=== PATIENT | male | born 1950 | race Hispanic/Latino ===

== ENCOUNTER 2020-01-24 21:58 | Emergency (ER) | payer OTHER ==
[~2020-01-24 21:58] MED LIST: Iopamidol-370 76% 500 ML 1 ML ONE
[2020-01-24 22:37] LABS: #Basophils 0.1 thou/uL (0.0-0.2); #Eosinphils 0.1 thou/uL (0.0-0.7); #Lymphocytes 4.6 thou/uL (1.20-3.40); #Monocytes 1.2 thou/uL (0.11-0.59); #Neutrophils 5.3 thou/uL (1.40-6.50); %Basophils 0.6 % (0.0-1.0); %Lymphocytes 40.9 % (21.0-51.0); %Neutrophils 46.4 % (42.0-75.0); Hemoglobin 17.6 g/dL (14.0-18.0); Mean Corpuscular HGB CONC 35.3 g/dL (32.0-36.0); Mean Corpuscular Hemoglobin 32.6 pg (27.0-31.0); Mean Corpuscular Volume 92.3 fL (78.0-98.0); Mean Platelet Volume 8.4 fL (7.4-10.4); Platelet Count 160 thou/uL (130-400); RBC Distribution Width 12.1 % (11.5-14.5); White Blood Cell (WBC) Count 11.3 thou/uL (4.8-10.8)
--- NOTE | 2020-01-24 22:40 | RAD ---
RIGHT HAND 3 VIEWS: Date: 01/24/2020 PROVIDED CLINICAL HISTORY: Pain status post injury. FINDINGS: Small linear radiodensity is present within the soft tissues of the palmar aspect of the ring digit D IP joint. Vascular calcifications are seen. There is no evidence for fracture or other acute osseous abnormality. If there is persistent clinical concern, conservative management and follow-up imaging a re advised. IMPRESSION: As above. POS: MARK ANTHONY
[2020-01-24 22:42] LABS: INR-International Normal Ratio 1.1; PTT 29.5 sec (22.9-36.1)
--- NOTE | 2020-01-24 22:47 | RAD ---
LEFT FOREARM RADIOGRAPHS 2 VIEWS: Date: 01/24/2020 PROVIDED CLINICAL HISTORY: Pain status post injury. FINDINGS/IMPRESSION: Healed fracture deformity of the distal radius, with chronic deformity that may need assessment for a cute disease. Vascular calcifications are seen. There is no definite evidence for an acute fracture o r other acute osseous abnormality. If there is persistent clinical concern, conservative management a nd follow-up imaging are advised. POS: MARK ANTHONY
--- NOTE | 2020-01-24 22:49 | CT ---
CT BRAIN: Date: 01/24/2020 PROVIDED CLINICAL HISTORY: Trauma. FINDINGS: The ventricular system appears normal in size and morphology. There is no evidence for intracranial h emorrhage or mass effect. The extracranial soft tissues and osseous structures demonstrate an unremar kable CT appearance. IMPRESSION: No evidence for intracranial hemorrhage or mass effect. POS: MARK ANTHONY
--- NOTE | 2020-01-24 22:51 | CT ---
CT CERVICAL SPINE: Date: 01/24/2020 PROVIDED CLINICAL HISTORY: Trauma. FINDINGS: There is no evidence for fracture or traumatic subluxation. Cervical degenerative changes are seen. V ascular calcifications are noted. Medialized course of both internal carotid arteries. The visualized lung apices appear clear. IMPRESSION: No evidence for fracture or traumatic subluxation. POS: MARK ANTHONY
[2020-01-24 22:53] LABS: ALT (SGPT) 49 U/L (8-55); AST (SGOT) 49 U/L (5-34); Alkaline Phosphatase 95 U/L (40-110); Anion Gap 16 mmol/L (10-20); BUN (Urea Nitrogen) 9 mg/dL (8.4-25.7); Bilirubin, Total 1.3 mg/dL (0.2-1.2); Calc. Creatinine Clearance 0 mL/min (70-130); Calcium 8.8 mg/dL (7.8-10.44); Carbon Dioxide 20 mmol/L (23-31); Chloride 101 mmol/L (98-107); Estimated GFR-MDRD 71; Globulin 3.6 g/dL (2.4-3.5); Glucose 206 mg/dL (80-115); Potassium 3.1 mmol/L (3.5-5.1); Protein, Total 7.6 g/dL (5.8-8.1); Sodium 134 mmol/L (136-145)
[2020-01-24 23:01] LABS: Acetaminophen Less than 6.0 mcg/mL (10.0-30.0); Alcohol 139 mg/dL (Less than 10); Salicylate Less than 8.0 mg/dL (15.0-30.0)
--- NOTE | 2020-01-24 23:09 | CT ---
CT OF THE CHEST AND ABDOMEN AND PELVIS WITH IV CONTRAST: Date: 01/24/2020 PROVIDED CLINICAL HISTORY: Trauma. FINDINGS: The heart, pericardium, and great vessels demonstrate no evidence for traumatic abnormality. 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 Vascular calcification including coronary calcium. There is no pleural fluid or pneumothorax appare nt. The lungs are free of significant opacity. The airway appears patent and of normal caliber. The solid abdominal organs demonstrate no evidence for traumatic abnormality. Bilateral renal hypoden sities are demonstrated, the larger of which are compatible with cysts and the smaller of which are t oo small to definitively characterize but likely also reflect cysts. There is no bowel dilatation, inflammatory fat stranding, free fluid, or free air apparent. The osseous structures demonstrate no concerning lytic or blastic lesions. There is no evidence for f racture. Thoracic and lumbar spinal alignment is maintained. There is no evidence for an acute compre ssion fracture. Chronic appearing loss of vertebral body height at T7. IMPRESSION: No evidence for traumatic abnormality involving the chest, abdomen, or pelvis. Chronic findings as ab ove. POS: MARK ANTHONY
[2020-01-24] MEDS ORDERED: Ketorolac Tromethamine 30 MG/ML VIAL ONE (23:23)
[2020-01-24] MEDS ORDERED: Morphine 4 MG/ML VIAL ONE (23:23)
[2020-01-24] MEDS ORDERED: Acetaminophen 500 MG TAB ONE (23:23)
== END 2020-01-25 00:20 | disposition home or self-care (01) ==
LOC: ERS 21:58
DX: S61.411A Laceration without foreign body of right hand, initial encounter (principal); S51.012A Laceration without foreign body of left elbow, initial encounter; E11.9 Type 2 diabetes mellitus without complications; I10 Essential (primary) hypertension; V29.9XXA Motorcycle rider (driver) (passenger) injured in unspecified traffic accident, initial encounter
CPT/HCPCS: 70450; 71260; 72125; 74177; 80053; 80307; 84484; 85025; 85610; 85730; 93005; 96365; 96375; J0690; J1885; J2270; Q9967

== ENCOUNTER 2023-03-27 12:59 | Inpatient (IN) | payer OTHER, MEDICAID ==
[2023-03-27 14:34] VITALS: BMI 42.1
[2023-03-27] MEDS ORDERED: Heparin 5,000 UNITS/ML VIAL ONE (14:36)
[2023-03-27] MEDS ORDERED: EPINEPHrine 1 MG/ML AMP ONE (14:36)
[2023-03-27] MEDS ORDERED: Protamine Sulfate 50 MG/5 ML VIAL ONE (14:36)
[2023-03-27] MEDS ORDERED: Bupivacaine PF 0.5% 30 ML VIAL ONE (14:36)
[2023-03-27] MEDS ORDERED: Phenylephrine 10 MG/ML VIAL ONE (14:43)
[2023-03-27] MEDS ORDERED: hydrALAZINE 20 MG/ML VIAL ONE (14:43)
[2023-03-27] MEDS ORDERED: ePHEDrine Sulfate 50 MG/10 ML VIAL ONE ×2 (14:43→15:31)
[2023-03-27] MEDS ORDERED: Nitroglycerin 50 MG/250 ML BOT 250 ML ONE (14:44)
[2023-03-27] MEDS ORDERED: fentaNYL 50 mcg/mL 1 mL Vial ONE (14:44)
[2023-03-27] MEDS ORDERED: Dexmedetomidine 200 MCG/2 ML VIAL ONE (14:44)
[2023-03-27] MEDS ORDERED: SUGAMMADEX SODIUM 200 MG/2 ML VIAL ONE (15:11)
[2023-03-27] MEDS ORDERED: Rocuronium Bromide 10 MG/ML (10ML VIAL) ONE (15:31)
[2023-03-27] MEDS ORDERED: Succinylcholine 200 MG/10 ml SYRINGE FS ONE (15:31)
[2023-03-27] MEDS ORDERED: Ondansetron PF 4 MG/2 ML Vial ONE (15:31)
[2023-03-27] MEDS ORDERED: Lidocaine 1% PF 5 ML VIAL ONE (15:31)
[2023-03-27] MEDS ORDERED: Glycopyrrolate 0.2 MG/ML 5 ML SYRINGE ONE (15:31)
[2023-03-27] MEDS ORDERED: PHENYLEPHRINE-NS 100 MCG/ML 10 ML SYRINGE ONE (15:31)
[2023-03-27] MEDS ORDERED: HYDROcodone/Acetaminophen 5/325 mg Tablet PO PRN ×2 (18:00)
[2023-03-27] MEDS ORDERED: Ipratropium/Albuterol 3 ML NEB NEB PRN (18:00)
[2023-03-27] MEDS ORDERED: Nitroglycerin 50 MG/250 ML BOT 250 ML IVPB PRN (18:00)
[2023-03-27] MEDS ORDERED: Sodium Chloride 0.9% 1,000 ML IV SCH (18:00)
[2023-03-27] MEDS ORDERED: Insulin Regular 300 UNITS/3 ML VIAL SC PRN (18:00)
[2023-03-27] MEDS ORDERED: Acetaminophen 325 MG TAB PO PRN (18:00)
[2023-03-27] MEDS ORDERED: Morphine 4 MG/ML VIAL ONE (18:13)
[2023-03-27] MEDS ORDERED: Phenylephrine 40 MG/NS 250 ML 40 MG in Premix Bag 1 BAG IVPB PRN (18:18)
[2023-03-27] MEDS: Morphine 4 MG/ML VIAL SLOW IVP PRN (18:23)
[2023-03-27] MEDS: Ondansetron PF 4 MG/2 ML Vial IVP PRN (18:42)
[2023-03-27 18:50] LABS: Glucose 127 mg/dL (83-110)
[2023-03-27] MEDS ORDERED: Atorvastatin Calcium 40 MG TAB PO SCH (21:00)
[2023-03-27] MEDS: metFORMIN 500 MG TAB PO SCH (21:45)
[2023-03-27] MEDS: Famotidine 20 MG TAB PO SCH (21:45)
[2023-03-27] MEDS: Metoprolol Tartrate 50 MG TAB PO SCH (23:25)
[2023-03-28] MEDS: Morphine 4 MG/ML VIAL SLOW IVP PRN (00:07)
[2023-03-28] MEDS: Ondansetron PF 4 MG/2 ML Vial IVP PRN ×2 (00:07→07:49)
[2023-03-28] MEDS: CEFAZOLIN 2 GM in Sodium Chloride 0.9% 100 ML IVPB SCH ×2 (00:13→07:49)
[2023-03-28 06:51] LABS: Glucose 143 mg/dL (83-110)
[2023-03-28] MEDS: Famotidine 20 MG TAB PO SCH (07:49)
[2023-03-28] MEDS: metFORMIN 500 MG TAB PO SCH (07:49)
[2023-03-28] MEDS: Metoprolol Tartrate 50 MG TAB PO SCH (07:50)
[2023-03-28] MEDS: Clopidogrel Bisulfate 75 MG TAB PO SCH ×2 (07:50→08:31)
[2023-03-28 07:55] VITALS: TEMP 98
[2023-03-28] MEDS ORDERED: Losartan 25 MG TAB PO SCH (09:00)
[2023-03-28] MEDS ORDERED: Amlodipine 5 MG TAB PO SCH (09:00)
[2023-03-28] MEDS ORDERED: Aspirin Chewable 81 MG TAB PO SCH (09:00)
[2023-03-28] MEDS ORDERED: Tamsulosin HCl 0.4 MG CAP PO SCH (09:00)
[2023-03-28] MEDS ORDERED: Empagliflozin 25 MG TAB PO SCH (09:00)
== END 2023-03-28 10:11 | disposition home or self-care (01) | DRG 38 ==
LOC: CCU 13:57
PROVIDERS: ADMIT Thoracic Surgery (Cardiothoracic Vascular Surgery); ATTEND Thoracic Surgery (Cardiothoracic Vascular Surgery)
PROC: 03CJ0ZZ Extirpation of Matter from Left Common Carotid Artery, Open Approach (ICD-10-PCS; principal; 2023-03-28)
PROC: 03CN0ZZ Extirpation of Matter from Left External Carotid Artery, Open Approach (ICD-10-PCS; 2023-03-28)
PROC: 03CL0ZZ Extirpation of Matter from Left Internal Carotid Artery, Open Approach (ICD-10-PCS; 2023-03-28)
PROC: 03UL0KZ Supplement Left Internal Carotid Artery with Nonautologous Tissue Substitute, Open Approach (ICD-10-PCS; 2023-03-28)
DX: I65.22 Occlusion and stenosis of left carotid artery (principal); Z68.41 Body mass index [BMI] 40.0-44.9, adult; I25.10 Atherosclerotic heart disease of native coronary artery without angina pectoris; E66.01 Morbid (severe) obesity due to excess calories; E78.5 Hyperlipidemia, unspecified; I10 Essential (primary) hypertension; Z86.73 Personal history of transient ischemic attack (TIA), and cerebral infarction without residual deficits; Z87.891 Personal history of nicotine dependence
CPT/HCPCS: 36415; 82947; C1768; J0171; J0360; J1644; J2270; J2370; J2405; J2720; J3010; J3490; J7050; S0020

== ENCOUNTER 2023-04-03 08:30 | Inpatient (IN) | payer OTHER, MEDICAID ==
[2023-04-05] MEDS ORDERED: Albumin 5% 500 ML ONE (06:17)
[2023-04-05] MEDS ORDERED: Heparin 10,000 UNITS/1 ML VIAL 30,000 UNITS in Sodium Chloride 0.9% 1,000 ML FS SCH (06:45)
[2023-04-05] MEDS ORDERED: Midazolam HCl 2 mg/2 ml Vial ONE ×2 (06:50)
[2023-04-05] MEDS ORDERED: EPINEPHrine 1 MG/ML AMP ONE (06:50)
[2023-04-05] MEDS ORDERED: Vasopressin 20 UNITS/ML VIAL ONE (06:50)
[2023-04-05] MEDS ORDERED: niCARdipine 25 MG/10 ML SDV ONE (06:50)
[2023-04-05] MEDS ORDERED: Fentanyl 250 MCG/5 ML VIAL ONE (06:50)
[2023-04-05] MEDS ORDERED: Norepinephrine 4 MG/4 ML VIAL ONE (06:50)
[2023-04-05] MEDS ORDERED: Rocuronium Bromide 50 MG/5 ML VIAL ONE (06:51)
[2023-04-05] MEDS ORDERED: Insulin Regular 300 UNITS/3 ML VIAL ONE (06:51)
[2023-04-05] MEDS ORDERED: Protamine Sulfate 250 MG/25 ML VIAL ONE (07:50)
[2023-04-05] MEDS ORDERED: Heparin 5,000 UNITS/ML VIAL ONE (07:50)
[2023-04-05] MEDS ORDERED: PHENYLEPHRINE-NS 100 MCG/ML 10 ML SYRINGE ONE ×2 (07:50→08:29)
[2023-04-05] MEDS ORDERED: Potassium Chloride 60 MEQ/30 ML VIAL ONE (07:50)
[2023-04-05] MEDS ORDERED: Vancomycin 1 GM VIAL ONE (07:50)
[2023-04-05] MEDS ORDERED: Mannitol 12.5 GM/50 ML ONE (07:50)
[2023-04-05] MEDS ORDERED: Aminocaproic Acid 5 GM/20 ML VIAL ONE (07:50)
[2023-04-05] MEDS ORDERED: Lidocaine 1% PF 5 ML VIAL ONE (07:50)
[2023-04-05] MEDS ORDERED: Cardioplegic Soln 1,000 ML BAG ONE (07:50)
[2023-04-05] MEDS ORDERED: Thrombin 5000 UNITS/5 ML VIAL ONE (07:50)
[2023-04-05] MEDS ORDERED: Magnesium 5 GM/10 ML VIAL ONE (07:50)
[2023-04-05] MEDS ORDERED: Heparin 30,000 units/30 ml VIAL ONE (07:50)
[2023-04-05] MEDS ORDERED: Rocuronium Bromide 10 MG/ML (10ML VIAL) ONE (07:50)
[2023-04-05] MEDS ORDERED: Sodium Bicarb 50 MEQ/50 ML Abboject 8.4% SYRINGE ONE (07:50)
[2023-04-05] MEDS ORDERED: Papaverine 60 MG/2 ML VIAL ONE (07:50)
[2023-04-05] MEDS ORDERED: Lidocaine 2% PF 100 mg/5 ml Syringe ONE (07:50)
[2023-04-05] MEDS ORDERED: PROPOFOL 200 MG/20 ML VIAL ONE (07:50)
[2023-04-05] MEDS ORDERED: Calcium Chloride 1 GM/10 ML Abboject SYRINGE ONE (07:50)
[2023-04-05] MEDS ORDERED: Isoflurane INH ANEST 100 ML BOTTLE ONE (08:29)
[2023-04-05 11:53] LABS: Actual Bicarbonate (HCO3a) 21.4 mEq/L (22-28); Base Excess (BEa) -3.4 mEq/L (-2.0 to +3.0); CO2 Tension 37.9 mmHg (35.0-45.0); Calcium, Ionized (arterial) 1.06 mmol/L (1.12-1.30); Carboxyhemoglobin (COHb) 0.8 gm% (0.0-3.0); Hematocrit-ABG 42 % (42.0-52.0); Hemoglobin (Hb) 14.2 g/dL (14.0-18.0); O2 Tension (PaO2), arterial 79.3 mmHg (> 70.0); Potassium - ABG Lab 4.59 mmol/L (3.70-5.30)
[2023-04-05 11:55] LABS: ALV-art Gradient 298.125 mmHg (0-20); Puncture Site Arterial Line
[2023-04-05] MEDS ORDERED: Ondansetron PF 4 MG/2 ML Vial IVP PRN (11:56)
[2023-04-05] MEDS ORDERED: NOREPINEPHRINE 8 MG/250 ML-D5W 250 ML IVPB PRN (11:56)
[2023-04-05] MEDS ORDERED: Post-Op Insulin Drip Protocol IVPB ONE (11:56)
[2023-04-05] MEDS ORDERED: Hetastarch 6% 500 ML 500 ML IVPB PRN (11:56)
[2023-04-05] MEDS ORDERED: Mag-Al 1200 mg/1200 mg/30 ML UDCUP PO PRN (11:56)
[2023-04-05] MEDS ORDERED: Bisacodyl 5 MG TAB PO PRN (11:56)
[2023-04-05] MEDS ORDERED: Nitroglycerin 50 MG/250 ML BOT 250 ML IVPB PRN (11:56)
[2023-04-05] MEDS ORDERED: HYDROcodone/Acetaminophen 5/325 mg Tablet PO PRN (11:56)
[2023-04-05] MEDS ORDERED: DOPamine 400 MG/D5W 250 ML 250 ML IVPB PRN (11:56)
[2023-04-05] MEDS ORDERED: Guaifenesin DM 100-10/5 ML UDCUP PO PRN (11:56)
[2023-04-05] MEDS ORDERED: niCARdipine 25 MG in Sodium Chloride 0.9% 250 ML 250 ML IVPB PRN (11:56)
[2023-04-05] MEDS ORDERED: hydrALAZINE 20 MG/ML VIAL SLOW IVP PRN (11:56)
[2023-04-05] MEDS ORDERED: Morphine 2 MG/ML VIAL SLOW IVP PRN (11:56)
[2023-04-05] MEDS ORDERED: fentaNYL 50 mcg/mL 1 mL Vial SLOW IVP PRN (11:56)
[2023-04-05] MEDS ORDERED: Potassium Chloride 20 MEQ/100 ML PREMIX BAG IVPB PRN (11:56)
[2023-04-05] MEDS ORDERED: Ipratropium/Albuterol 3 ML NEB NEB PRN (11:56)
[2023-04-05] MEDS ORDERED: Bisacodyl 10 MG SUPP PR PRN (11:56)
[2023-04-05] MEDS ORDERED: Promethazine HCl 25 MG/ML VIAL IM PRN (11:56)
[2023-04-05] MEDS ORDERED: Ketorolac Tromethamine 30 MG/ML VIAL IVP SCH (12:00)
[2023-04-05 12:03] LABS: #Eosinphils 0.1 thou/uL (0.0-0.7); #Monocytes 0.8 thou/uL (0.11-0.59); #Neutrophils 10.4 thou/uL (1.40-6.50); %Basophils 0.2 % (0.0-1.0); %Eosinophils 0.8 % (0.0-10.0); %Lymphocytes 9.5 % (21.0-51.0); %Monocytes 6.4 % (0.0-10.0); %Neutrophils 82.1 % (42.0-75.0); Hemoglobin 13.5 g/dL (14.0-18.0); Mean Corpuscular HGB CONC 34.6 g/dL (32.0-36.0); Mean Corpuscular Hemoglobin 33.1 pg (27.0-31.0); Mean Corpuscular Volume 95.6 fl (78.0-98.0); Mean Platelet Volume 10.3 fL (7.4-10.4); Platelet Count 160 10x3/uL (130-400); RBC Distribution Width 12.9 % (11.5-14.5); Red Blood Cell (RBC) Count 4.08 mill/uL (4.70-6.10); White Blood Cell (WBC) Count 12.7 10x3/uL (4.8-10.8)
[2023-04-05] MEDS: Lactated Ringer's 1,000 ML IV SCH (12:12)
[2023-04-05 12:17] LABS: INR-International Normal Ratio 1.6; Prothrombin Time 19.2 sec (12.0-14.7)
[2023-04-05] MEDS: Amiodarone 450 MG in Dextrose 5% in Water 250 ML IVPB SCH ×2 (12:36→20:14)
[2023-04-05 12:37] LABS: BUN (Urea Nitrogen) 21 mg/dL (8.4-25.7); Calc. Creatinine Clearance 65 mL/min (70-130); Calcium 7.4 mg/dL (7.8-10.44); Carbon Dioxide 19 mmol/L (23-31); Chloride 111 mmol/L (98-107); Estimated GFR 43; Glucose 153 mg/dL (83-110); Potassium 4.6 mmol/L (3.5-5.1); Sodium 139 mmol/L (136-145)
[2023-04-05] MEDS ORDERED: HUMULIN R 100 UNITS in Sodium Chloride 0.9% 100 ML IVPB SCH (13:00)
[2023-04-05] MEDS ORDERED: Dextrose 5% in Water 1,000 ML IV PRN (13:00)
[2023-04-05] MEDS ORDERED: Glucagon 1 MG/ML KIT SC PRN (13:00)
[2023-04-05] MEDS ORDERED: Insulin Regular 300 UNITS/3 ML VIAL SC PRN (13:00)
[2023-04-05] MEDS ORDERED: Dextrose 50% Abboject 50 ML SYRINGE SLOW IVP PRN (13:00)
[2023-04-05 13:18] LABS: Anion Gap 14 mmol/L (10-20)
[2023-04-05 16:15] LABS: Actual Bicarbonate (HCO3a) 21.9 mEq/L (22-28); Base Excess (BEa) -2.7 mEq/L (-2.0 to +3.0); CO2 Tension 37.6 mmHg (35.0-45.0); Calcium, Ionized (arterial) 1.09 mmol/L (1.12-1.30); Carboxyhemoglobin (COHb) 0.8 gm% (0.0-3.0); Hematocrit-ABG 45 % (42.0-52.0); Hemoglobin (Hb) 15.3 g/dL (14.0-18.0); O2 Tension (PaO2), arterial 89.8 mmHg (> 70.0); Potassium - ABG Lab 4.59 mmol/L (3.70-5.30); pH, Arterial 7.383 (7.35-7.45)
[2023-04-05 16:17] LABS: Puncture Site Arterial Line
[2023-04-05] MEDS: CEFAZOLIN 2 GM in Sodium Chloride 0.9% 100 ML IVPB SCH ×2 (16:19→22:10)
[2023-04-05 17:32] LABS: Hematocrit 41.6 % (42.0-52.0); Hemoglobin 14.3 g/dL (14.0-18.0)
[2023-04-05 17:49] LABS: Potassium 4.6 mmol/L (3.5-5.1)
[2023-04-05] MEDS: HYDROcodone/Acetaminophen 5/325 mg Tablet PO PRN (17:56)
[2023-04-05] MEDS: Famotidine/PF 20 mg/2ml Vial SLOW IVP SCH (20:12)
[2023-04-05] MEDS ORDERED: Atorvastatin Calcium 20 MG TAB PO SCH (21:00)
[2023-04-05] MEDS: fentaNYL 50 mcg/mL 1 mL Vial SLOW IVP PRN (21:41)
[2023-04-06] MEDS: fentaNYL 50 mcg/mL 1 mL Vial SLOW IVP PRN (00:31)
[2023-04-06] MEDS: HYDROcodone/Acetaminophen 5/325 mg Tablet PO PRN ×2 (03:03→08:54)
[2023-04-06 04:22] LABS: #Monocytes 1.2 thou/uL (0.11-0.59); #Neutrophils 10.6 thou/uL (1.40-6.50); %Basophils 0.3 % (0.0-1.0); %Eosinophils 0.2 % (0.0-10.0); %Monocytes 9.3 % (0.0-10.0); %Neutrophils 82.8 % (42.0-75.0); Hematocrit 41.7 % (42.0-52.0); Hemoglobin 14.4 g/dL (14.0-18.0); Mean Corpuscular HGB CONC 34.5 g/dL (32.0-36.0); Mean Corpuscular Volume 95.4 fl (78.0-98.0); Mean Platelet Volume 11.5 fL (7.4-10.4); Platelet Count 204 10x3/uL (130-400); RBC Distribution Width 12.9 % (11.5-14.5); Red Blood Cell (RBC) Count 4.37 mill/uL (4.70-6.10); White Blood Cell (WBC) Count 12.8 10x3/uL (4.8-10.8)
[2023-04-06 04:50] LABS: Anion Gap 12 mmol/L (10-20); BUN (Urea Nitrogen) 18 mg/dL (8.4-25.7); Calc. Creatinine Clearance 87 mL/min (70-130); Calcium 8.2 mg/dL (7.8-10.44); Carbon Dioxide 20 mmol/L (23-31); Chloride 109 mmol/L (98-107); Estimated GFR 61; Glucose 125 mg/dL (83-110); Potassium 4.2 mmol/L (3.5-5.1); Sodium 137 mmol/L (136-145)
[2023-04-06] MEDS: CEFAZOLIN 2 GM in Sodium Chloride 0.9% 100 ML IVPB SCH (06:25)
[2023-04-06] MEDS: Lactated Ringer's 1,000 ML IV SCH (07:00)
[2023-04-06] MEDS: Aspirin 325 MG TAB PO SCH (08:26)
[2023-04-06] MEDS: Famotidine/PF 20 mg/2ml Vial SLOW IVP SCH (08:26)
[2023-04-06] MEDS: Amiodarone 200 MG TAB PO SCH ×2 (08:27→20:27)
[2023-04-06] MEDS: Magnesium 2 GM/50 ML(in water) 2 GM in Premix Bag 1 BAG IVPB SCH (08:28)
[2023-04-06 10:43] VITALS: BMI 42.1
[2023-04-06] MEDS ORDERED: Insulin Glargine 30 UNITS/0.3 ML VIAL SC PRN (12:49)
[2023-04-06] MEDS ORDERED: Artificial Tear Sol 15 ML BOT EA EYE PRN (14:53)
[2023-04-06] MEDS ORDERED: Mineral Oil ENEMA PR PRN (14:53)
[2023-04-06] MEDS ORDERED: Nitroglycerin 0.4 MG TAB (25 Tab Bottle) SL PRN (14:53)
[2023-04-06] MEDS ORDERED: Famotidine 20 MG TAB PO SCH (14:53)
[2023-04-06] MEDS ORDERED: Dextrose 5% in Water 1,000 ML IV PRN (15:00)
[2023-04-06] MEDS ORDERED: Glucagon 1 MG/ML KIT SC PRN (15:00)
[2023-04-06] MEDS ORDERED: Dextrose 50% Abboject 50 ML SYRINGE SLOW IVP PRN (15:00)
[2023-04-06] MEDS: Acetaminophen 325 MG TAB PO PRN ×2 (16:47→22:32)
[2023-04-06] MEDS: Atorvastatin Calcium 40 MG TAB PO SCH (20:27)
[2023-04-06] MEDS: Famotidine 20 MG TAB PO SCH (20:27)
[2023-04-06] MEDS: Insulin Regular 300 UNITS/3 ML VIAL SC PRN (21:48)
[2023-04-07] MEDS: Acetaminophen 325 MG TAB PO PRN (04:17)
[2023-04-07 05:01] LABS: Anion Gap 12 mmol/L (10-20); BUN (Urea Nitrogen) 13 mg/dL (8.4-25.7); Calc. Creatinine Clearance 111 mL/min (70-130); Calcium 8.7 mg/dL (7.8-10.44); Carbon Dioxide 22 mmol/L (23-31); Chloride 106 mmol/L (98-107); Estimated GFR 80; Glucose 105 mg/dL (83-110); Potassium 3.9 mmol/L (3.5-5.1); Sodium 136 mmol/L (136-145)
[2023-04-07] MEDS: Furosemide 40 MG TAB PO SCH ×2 (09:04→14:47)
[2023-04-07] MEDS: Famotidine 20 MG TAB PO SCH ×2 (09:04→22:03)
[2023-04-07] MEDS: Amiodarone 200 MG TAB PO SCH ×2 (09:04→22:02)
[2023-04-07] MEDS: Magnesium 2 GM/50 ML(in water) 2 GM in Premix Bag 1 BAG IVPB SCH (09:05)
[2023-04-07] MEDS: Aspirin 325 MG TAB PO SCH (09:05)
[2023-04-07] MEDS ORDERED: Insulin Glargine 30 UNITS/0.3 ML VIAL SC PRN (14:56)
[2023-04-07] MEDS: Carvedilol 3.125 MG TAB PO SCH (17:28)
[2023-04-07] MEDS: Potassium Chloride 10 MEQ TAB PO SCH (17:29)
[2023-04-07] MEDS: Atorvastatin Calcium 40 MG TAB PO SCH (22:03)
[2023-04-08] MEDS: Amiodarone 200 MG TAB PO SCH ×2 (08:57→20:09)
[2023-04-08] MEDS: Potassium Chloride 10 MEQ TAB PO SCH ×2 (08:57→16:29)
[2023-04-08] MEDS: Carvedilol 3.125 MG TAB PO SCH ×2 (08:57→16:29)
[2023-04-08] MEDS: Famotidine 20 MG TAB PO SCH ×2 (08:58→20:09)
[2023-04-08] MEDS: Furosemide 40 MG TAB PO SCH ×2 (08:58→13:47)
[2023-04-08] MEDS: Aspirin 325 MG TAB PO SCH (08:58)
[2023-04-08] MEDS: Insulin Regular 300 UNITS/3 ML VIAL SC PRN ×2 (11:50→20:19)
[2023-04-08] MEDS: Atorvastatin Calcium 40 MG TAB PO SCH (20:09)
[2023-04-09] MEDS: Potassium Chloride 10 MEQ TAB PO SCH (08:32)
[2023-04-09] MEDS: Carvedilol 3.125 MG TAB PO SCH (08:32)
[2023-04-09] MEDS: Furosemide 40 MG TAB PO SCH (08:32)
[2023-04-09] MEDS: Aspirin 325 MG TAB PO SCH (08:32)
[2023-04-09] MEDS: Famotidine 20 MG TAB PO SCH (08:32)
[2023-04-09] MEDS: Amiodarone 200 MG TAB PO SCH (08:32)
[2023-04-09 12:59] VITALS: BP 146/80; TEMP 98.3
[2023-04-10 12:06] LABS: Analyzer IN Cardio OR; Base Excess (BEa) -5.5 mEq/L (-2.0 to +3.0); CO2 Tension 34.5 mmHg (35.0-45.0); Calcium, Ionized (arterial) 1.08 mmol/L (1.12-1.30); Carboxyhemoglobin (COHb) 1.3 gm% (0.0-3.0); Hematocrit-ABG 44 % (42.0-52.0); Hemoglobin (Hb) 14.9 g/dL (14.0-18.0); O2 Tension (PaO2), arterial 227.9 mmHg (> 70.0); Potassium - ABG Lab 3.72 mmol/L (3.70-5.30); pH, Arterial 7.359 (7.35-7.45)
[2023-04-10 12:06] LABS: Actual Bicarbonate (HCO3a) 19.4 mEq/L (22-28); Analyzer IN Cardio OR; Base Excess (BEa) -5.2 mEq/L (-2.0 to +3.0); CO2 Tension 35.3 mmHg (35.0-45.0); Calcium, Ionized (arterial) 1.03 mmol/L (1.12-1.30); Carboxyhemoglobin (COHb) 0.9 gm% (0.0-3.0); Hematocrit-ABG 41 % (42.0-52.0); Hemoglobin (Hb) 13.9 g/dL (14.0-18.0); O2 Tension (PaO2), arterial 249.6 mmHg (> 70.0); Potassium - ABG Lab 3.83 mmol/L (3.70-5.30); pH, Arterial 7.359 (7.35-7.45)
[2023-04-10 12:06] LABS: Analyzer IN Cardio OR; Base Excess (BEa) -2.6 mEq/L (-2.0 to +3.0); CO2 Tension 32.3 mmHg (35.0-45.0); Calcium, Ionized (arterial) 0.96 mmol/L (1.12-1.30); Hematocrit-ABG 35 % (42.0-52.0); Hemoglobin (Hb) 11.9 g/dL (14.0-18.0); O2 Tension (PaO2), arterial 441.5 mmHg (> 70.0); Potassium - ABG Lab 5.13 mmol/L (3.70-5.30)
[2023-04-10 12:06] LABS: Actual Bicarbonate (HCO3v) 23.7 mEq/L (22-28); Analyzer IN Cardio OR; Base Excess -1.5 mEq/L (-2.0 to +3.0); Calcium, Ionized (venous) 0.95 mmol/L (1.16-1.32); Chloride (VBG) 106 mmol/L (98-106); Hematocrit-VBG 35 % (42.0-52.0); Hemoglobin (Hb) 11.9 g/dL (12.6-17.4); Potassium (VBG) 4.73 mmol/L (3.70-5.30); Sodium 137.4 mmol/L (133-146); pH (venous) 7.374 (7.32-7.43)
[2023-04-10 12:07] LABS: Puncture Site Arterial Line
[2023-04-10 12:07] LABS: Puncture Site Arterial Line
[2023-04-10 12:07] LABS: Actual Bicarbonate (HCO3a) 21.5 mEq/L (22-28); Analyzer IN Cardio OR; Base Excess (BEa) -3.5 mEq/L (-2.0 to +3.0); CO2 Tension 38.4 mmHg (35.0-45.0); Calcium, Ionized (arterial) 0.98 mmol/L (1.12-1.30); Carboxyhemoglobin (COHb) 0.1 gm% (0.0-3.0); Hematocrit-ABG 34 % (42.0-52.0); Hemoglobin (Hb) 11.6 g/dL (14.0-18.0); O2 Tension (PaO2), arterial 330.2 mmHg (> 70.0); Potassium - ABG Lab 4.97 mmol/L (3.70-5.30); pH, Arterial 7.366 (7.35-7.45)
[2023-04-10 12:07] LABS: Actual Bicarbonate (HCO3a) 18.6 mEq/L (22-28); Analyzer IN Cardio OR; Base Excess (BEa) -5.6 mEq/L (-2.0 to +3.0); CO2 Tension 32.9 mmHg (35.0-45.0); Calcium, Ionized (arterial) 1.05 mmol/L (1.12-1.30); Carboxyhemoglobin (COHb) 0.9 gm% (0.0-3.0); Hematocrit-ABG 40 % (42.0-52.0); Hemoglobin (Hb) 13.6 g/dL (14.0-18.0); O2 Tension (PaO2), arterial 73.6 mmHg (> 70.0); Potassium - ABG Lab 4.47 mmol/L (3.70-5.30); pH, Arterial 7.371 (7.35-7.45)
[2023-04-10 12:08] LABS: Puncture Site Arterial Line
[2023-04-10 12:08] LABS: Puncture Site Arterial Line
[2023-04-10 12:09] LABS: Puncture Site Arterial Line
== END 2023-04-09 12:33 | disposition home or self-care (01) | DRG 236 ==
LOC: SURG A 04-05 05:42 → CCU 04-05 11:46 → 2NO 04-07 10:58
PROVIDERS: ADMIT Thoracic Surgery (Cardiothoracic Vascular Surgery); ATTEND Thoracic Surgery (Cardiothoracic Vascular Surgery)
PROC: 02100Z9 Bypass Coronary Artery, One Artery from Left Internal Mammary, Open Approach (ICD-10-PCS; principal; 2023-04-05)
PROC: 021109W Bypass Coronary Artery, Two Arteries from Aorta with Autologous Venous Tissue, Open Approach (ICD-10-PCS; 2023-04-05)
PROC: 06BQ4ZZ Excision of Left Saphenous Vein, Percutaneous Endoscopic Approach (ICD-10-PCS; 2023-04-05)
PROC: 02L70CK Occlusion of Left Atrial Appendage with Extraluminal Device, Open Approach (ICD-10-PCS; 2023-04-05)
PROC: 5A1221Z Performance of Cardiac Output, Continuous (ICD-10-PCS; 2023-04-05)
PROC: 4A133R1 Monitoring of Arterial Saturation, Peripheral, Percutaneous Approach (ICD-10-PCS; 2023-04-05)
PROC: 30233J1 Transfusion of Nonautologous Serum Albumin into Peripheral Vein, Percutaneous Approach (ICD-10-PCS; 2023-04-05)
PROC: 3E033XZ Introduction of Vasopressor into Peripheral Vein, Percutaneous Approach (ICD-10-PCS; 2023-04-05)
DX: I25.10 Atherosclerotic heart disease of native coronary artery without angina pectoris (principal); I97.190 Other postprocedural cardiac functional disturbances following cardiac surgery; Z68.41 Body mass index [BMI] 40.0-44.9, adult; Z86.73 Personal history of transient ischemic attack (TIA), and cerebral infarction without residual deficits; I48.0 Paroxysmal atrial fibrillation; E11.9 Type 2 diabetes mellitus without complications; E66.01 Morbid (severe) obesity due to excess calories; I10 Essential (primary) hypertension; E78.5 Hyperlipidemia, unspecified; G47.30 Sleep apnea, unspecified; Z87.891 Personal history of nicotine dependence
CPT/HCPCS: 36415; 36416; 36430; 71045; 80048; 82805; 82947; 85025; 85610; 85730; 86850; 86900; 86901; 93005; 93010; 93798; 94002; 94150; A4311; C1713; C1751; J0171; J0282; J0360; J1642; J1644; J1815; J1885; J2001; J2150; J2250; J2405; J2440; J2704; J2720; J3010; J3370; J3475; J3480; J3490; J7070; J7120; P9045; S0017; S0028